=== PATIENT | female | born 1995 | race Caucasian/White ===

== ENCOUNTER 2016-03-24 13:02 | Emergency (ER) | payer MEDICAID ==
[2016-03-24] MEDS ORDERED: LIDOCAINE 1% MDV 20 ML ONE (13:28)
[2016-03-24] MEDS ORDERED: L.E.T. 3 ML SOLUTION TOPICAL ONE (13:28)
== END 2016-03-24 14:09 | disposition home or self-care (01) ==
LOC: FASTR 13:02
DX: L03.115 Cellulitis of right lower limb (principal); L02.415 Cutaneous abscess of right lower limb